=== PATIENT | female | born 1995 | race Caucasian/White ===

== ENCOUNTER → 2017-05-04 | Outpatient (CLI) | payer BC | LOC: COL.RAD 04-30 10:00 | DX: R07.89 Other chest pain (principal); R91.1 Solitary pulmonary nodule ==

== ENCOUNTER → 2017-06-03 | Outpatient (CLI) | payer BC | LOC: COL.RAD 07:30 | DX: R10.11 Right upper quadrant pain (principal); N92.0 Excessive and frequent menstruation with regular cycle ==

== ENCOUNTER → 2018-10-18 | Outpatient (CLI) | payer BC | LOC: COL.RAD 09:55 | DX: R11.0 Nausea (principal); R10.13 Epigastric pain | CPT/HCPCS: A9537 ==

== ENCOUNTER 2018-11-11 05:38 | Day surgery (SDC) | payer BC ==
[~2018-11-11] VITALS: Ht 162.6 cm; Wt 87.6 kg
[2018-11-11] VITALS (10 sets, daily range): BP systolic 111–122; BP diastolic 52–72; PULSE 59–79; TEMP 98.5–99.5
[2018-11-11] MEDS ORDERED: SPRINTEC 35 MCG1 TAB PO (06:32)
[2018-11-11] MEDS ORDERED: ADDERALL XR20 MG PO (06:33)
[2018-11-11] MEDS ORDERED: BRINTELLIX20 PO (06:34)
[2018-11-11] MEDS ORDERED: ZOFRAN 4MG T4 MG/TAB PO (06:35)
[2018-11-11] MEDS ORDERED: MOTRIN 600600 MG/TAB PO (09:04)
[2018-11-11] MEDS ORDERED: COLACE 100100 MG/CAP PO (09:04)
[2018-11-11] MEDS ORDERED: PERCOCET 325 MG1 TA2 PO (09:05)
[2018-11-11] MEDS ORDERED: ZOFRAN ODT4 MG PO (09:06)
--- NOTE | 2018-11-11 09:35 | NUR ---
Patient returns to room 7 per cart from PACU and arouses to verbal stimuli. Temp 97.8 and room air sats 95%. Incisions x4 on abdomen covered with patahk set. Drowsy and encouraged to rest. IV fluids infusing and siderails up x2. Call light in reach. Mother at side.
--- NOTE | 2018-11-11 09:50 | NUR ---
Allowed to sleep. Opens eyes and states that she is having pain and immediately closes eyes and rests comfortably. Will continue to monitor. IV fluids infusing.
--- NOTE | 2018-11-11 10:05 | NUR ---
Resting with eyes closed when not disturbed.
--- NOTE | 2018-11-11 10:20 | NUR ---
Resting when not disturbed.
--- NOTE | 2018-11-11 10:35 | NUR ---
More awake and taking sips of water. Rates pain at 5/10. States that she is having some mild nausea but is tolerable.
--- NOTE | 2018-11-11 10:45 | NUR ---
Ate applesauce and sipped on Sprite. Medicated with Percocet 5mg one tab for pain.
--- NOTE | 2018-11-11 11:15 | NUR ---
Complains of increasing nausea. Complains of being hot and warm blankets removed. Cool cloth on forehead and fan placed in room. Order obtained for Phenergan 6.25mg IV and given slowly over 10 minutes. Will continue to monitor.
--- NOTE | 2018-11-11 12:05 | NUR ---
Room air sats 97%. Allowed to sleep. Call light in reach and mother in room.
--- NOTE | 2018-11-11 13:05 | NUR ---
Eating crackers. States that she is feeling much better.
--- NOTE | 2018-11-11 13:35 | NUR ---
Assisted up to the bathroom and is able to void. States that she became nauseated with the movement. Resting on cart. No emesis. Scripts given to mother for Motrin, Percocet, and Zofran to be filled prior to discharge.
--- NOTE | 2018-11-11 14:00 | NUR ---
Resting with eyes closed when not disturbed and offers no further complaints of pain or nausea.
--- NOTE | 2018-11-11 15:15 | NUR ---
Awake and states that she is hungry. Taking few bites of muffin. Mother has returned with scripts. Denies further nausea states that she is having some abdominal soreness. Instructed to begin taking Motrin every 6 hours.
--- NOTE | 2018-11-11 15:45 | NUR ---
IV discontinued and assisted patient with dressing.
--- NOTE | 2018-11-11 16:05 | NUR ---
Dismissal instructions signed and voices understanding of these. No further nausea or pain.
--- NOTE | 2018-11-11 16:14 | NUR ---
Patient dismissed to home per private vehicle driven by mother and taken to the front door per wheelchair and assisted into vehicle by RN with instructions in hand.
== END 2018-11-11 16:14 | disposition home or self-care (01) ==
LOC: SDCO 05:38
DX: K81.1 Chronic cholecystitis (principal); F41.9 Anxiety disorder, unspecified; F32.9 Major depressive disorder, single episode, unspecified; F90.9 Attention-deficit hyperactivity disorder, unspecified type; G47.00 Insomnia, unspecified; Z82.49 Family history of ischemic heart disease and other diseases of the circulatory system
CPT/HCPCS: J0690; J1100; J1200; J2405; J2550; J2704; J7120; Q9967

== ENCOUNTER 2019-11-11 23:33 | Emergency (ER) | payer BC ==
[~2019-11-11] VITALS: Ht 162.6 cm; Wt 95.5 kg
[~2019-11-11 23:33] MED LIST: ADDERALL XR20 MG PO; BRINTELLIX20 PO; COLACE 100100 MG/CAP PO; MOTRIN 600600 MG/TAB PO; PERCOCET 325 MG1 TA2 PO; SPRINTEC 35 MCG1 TAB PO; ZOFRAN 4MG T4 MG/TAB PO; ZOFRAN ODT4 MG PO
[2019-11-11 23:45] VITALS: TEMP 98.8
[2019-11-12] MEDS ORDERED: PROTONIX20 MG PO (00:14)
[2019-11-12 00:52] LABS: BASO % 0.2 % (0.0-2.0); EOS # 0.2 (0.0-0.7); EOS % 1.6 % (0-4.0); GRAN # 8.8 (1.4-6.5); GRAN % 61.8 % (42.2-75.2); HEMATOCRIT 37.1 % (37.0-47.0); HEMOGLOBIN 12.5 g/dl (12.5-16.0); LYMPH # 4.1 (1.2-3.4); LYMPH % 29.1 % (20.0-51.0); MEAN CELL VOLUME 89 fl (80.0-100.0); MEAN CORPUSCULAR HEMOGLOBIN 30 pg (27.0-31.0); MEAN CORPUSCULAR HGB CONC 34 g/dl (33.0-37.0); MEAN PLATELET VOLUME 9.7 fl (7.4-10.4); MONO % 6.9 % (1.7-9.3); PLATELET COUNT 271 K/mm3 (130-400); RED BLOOD COUNT 4.18 M/mm3 (4.10-5.30); REDCELL DISTRIBUTION WIDTH-CV 12.6 % (11.5-14.5)
[2019-11-12 01:03] LABS: BILIRUBIN,TOTAL 0.4 mg/dL (0.0-1.0); C-REACTIVE PROTEIN 1.1 mg/dL (0.0-0.9); CALCIUM 9.2 mg/dL (8.4-10.2); CREATININE, serum 0.89 (0.52-1.25); POTASSIUM 3.7 mmol/L (3.4-5.0); TOTAL PROTEIN 7.1 gm/dL (6.4-8.2)
[2019-11-12 01:44] LABS: COLLECTION METHOD CLEAN CATCH
[2019-11-12 01:50] LABS: MUCOUS Present /lpf; PH 5 (5-8); URINE APPEARANCE Clear; URINE BACTERIA None Seen /hpf; URINE BILIRUBIN Negative (NEGATIVE); URINE BLOOD Negative (NEGATIVE); URINE COLOR Yellow; URINE GLUCOSE Negative (NEGATIVE); URINE KETONE Negative (NEGATIVE); URINE LEUKOCYTE ESTERASE Negative (NEGATIVE); URINE NITRATE Negative (NEGATIVE); URINE PROTEIN(semi-quant) Negative (NEGATIVE); URINE RBC 0-2 /hpf; URINE UROBILINOGEN Negative (NEGATIVE)
[2019-11-12 03:11] VITALS: BP 138/88; PULSE 85
== END 2019-11-12 03:11 | disposition home or self-care (01) ==
LOC: COL.ER 23:33
PROVIDERS: Emergency Medicine; Nurse Practitioner Primary Care
DX: N83.292 Other ovarian cyst, left side (principal); R11.0 Nausea; Z32.02 Encounter for pregnancy test, result negative; Z90.49 Acquired absence of other specified parts of digestive tract
CPT/HCPCS: J1170; J2405; J7030; Q9967